=== PATIENT | female | born 1950 | race Caucasian/White ===

== ENCOUNTER 2016-11-22 16:32 | Emergency (ER) | payer MEDICARE, BC ==
[2014-12-31 00:34] VITALS: BMI 36.6
[~2016-11-22 16:32] MED LIST: BYSTOLIC10 MG PO; DIOVAN HCT 160/1 TAB PO; ESTRACE2 MG PO; PLAVIX75 MG PO; PROTONIX40 MG PO; PROVERA 5 MG TAB5 MG PO; SYNTHROID25 MCG PO
[2016-11-22 17:53] LABS: BASOPHILS 0.6 % (0-2); EOSINOPHILS 4.9 % (0-7); HEMATOCRIT 43.6 % (36.0-48.0); HEMOGLOBIN 14.3 g/dL (12-16); IMMATURE GRANULOCYTES 0.2 % (0-5); MCH 28.7 pg (26.0-34.0); MCHC 32.8 g/dL (31.0-37.0); MCV 87.6 fL (80.0-100.0); MEAN PLATELET VOLUME 9.2 fL (7.4-10.4); MONOCYTES 4.9 % (2-11); NEUTROPHILS 56.4 % (40-80); PLATELET COUNT 251 10x3/uL (130-400); RBC 4.98 10x6/uL (4.00-5.40); RDW 14.8 % (11.5-14.5); WBC 6.3 10x3/uL (4.8-10.8)
== END 2016-11-22 19:59 | disposition home or self-care (01) ==
LOC: D.ER 16:32
PROVIDERS: Family Medicine
DX: R04.0 Epistaxis (principal); I10 Essential (primary) hypertension; Z86.73 Personal history of transient ischemic attack (TIA), and cerebral infarction without residual deficits

== ENCOUNTER → 2018-11-30 08:31 | Outpatient (CLI) | payer MEDICARE, BC | END | disposition home or self-care (01) | LOC: D.HCCARDIO 08:31 | DX: I34.0 Nonrheumatic mitral (valve) insufficiency (principal) ==

== ENCOUNTER → 2019-10-18 18:59 | Outpatient (CLI) | payer MEDICARE, BC ==
[2014-12-31 00:34] VITALS: BMI 36.6
== END | disposition home or self-care (01) ==
LOC: D.MAMMO 15:30
PROVIDERS: ATTEND Family Medicine
DX: Z12.31 Encounter for screening mammogram for malignant neoplasm of breast (principal)

== ENCOUNTER → 2019-12-05 08:38 | Outpatient (CLI) | payer MEDICARE, BC ==
[2014-12-31 00:34] VITALS: BMI 36.6
== END | disposition home or self-care (01) ==
LOC: D.HCCECHO 08:38
PROVIDERS: ATTEND Internal Medicine Cardiovascular Disease
DX: I34.0 Nonrheumatic mitral (valve) insufficiency (principal)

== ENCOUNTER → 2021-01-09 10:57 | Outpatient (CLI) | payer MEDICARE, BC ==
[2014-12-31 00:34] VITALS: BMI 36.6
== END | disposition home or self-care (01) ==
LOC: D.HCCECHO 10:57
PROVIDERS: ATTEND Internal Medicine Cardiovascular Disease
DX: I34.0 Nonrheumatic mitral (valve) insufficiency (principal)